=== PATIENT | male | born 1960 | race Caucasian/White ===

== ENCOUNTER 2019-10-01 07:51 | Day surgery (SDC) | payer MEDICAID ==
[~2019-10-01] VITALS: Ht 177.8 cm; Wt 88.5 kg
[2019-10-01] MEDS ORDERED: fentaNYL 0.05 MG/ML VIAL ONE (09:24)
[2019-10-01] MEDS ORDERED: LIDOCAINE 2% 100 MG/5 ML UJET TP ONE (09:25)
[2019-10-01] MEDS ORDERED: fentaNYL 0.05 MG/ML VIAL IVP ONE (10:05)
== END 2019-10-01 10:27 | disposition home or self-care (01) ==
LOC: MDS 07:51 → MMU 07:52 → MDS 10:27
PROVIDERS: ATTEND Internal Medicine Gastroenterology
DX: Z12.11 Encounter for screening for malignant neoplasm of colon (principal); K64.8 Other hemorrhoids
CPT/HCPCS: 45378; J3010